=== PATIENT | male | born 1950 | race Caucasian/White ===

== ENCOUNTER → 2017-02-20 | Outpatient (CLI) | payer OTHER ==
[2017-02-20 13:11] LABS: BASO % 0.9 %; BASO ABS # 0.06 K/uL (0-0.2); COMPLETE YES; HEMATOCRIT 41.5 % (42-52); IG% 0.7 %; LYMPH % 35.2 %; LYMPH ABS # 2.36 K/uL (1.2-3.4); MEAN CORPUSCULAR HGB CONC 33.7 g/dl (32-36); MEAN PLATELET VOLUME 9.6 fL (7.4-10.4); MONO % 10.3 %; NEUT % 49.9 %; PLATELET COUNT 480 K/uL (130-400); RED BLOOD COUNT 4.37 M/uL (4.7-6.1)
[2017-02-20 13:37] LABS: ALT/SGPT 18 U/L (12-78); AST/SGOT 15 U/L (15-37); BLOOD UREA NITROGEN 18 mg/dl (7-18); BUN/CREATININE RATIO 21.3 (10-20); CALCIUM 9.1 mg/dl (8.5-10.1); CARBON DIOXIDE 28 mmol/L (21-32); CHLORIDE 105 mmol/L (98-107); CHOLESTEROL 171 mg/dl (0-200); CREATININE 0.83 mg/dl (0.60-1.40); GLUCOSE 107 mg/dl (70-99); POTASSIUM 4.6 mmol/L (3.5-5.1); SODIUM 139 mmol/L (136-145)
[2017-02-20 13:39] LABS: ALKALINE PHOSPHATASE 75 U/L (45-117); CHOLESTEROL/HDL RATIO 3.4; HDL CHOLESTEROL 51 mg/dl; LDL CHOLESTEROL CALCULATED 102 mg/dl; TRIGLYCERIDES 91 mg/dl (0-150); VERY LOW DENSITY LIPOPROT CALC 18 mg/dl
== END | disposition home or self-care (01) ==
LOC: C.LABMFLN 07:58
PROVIDERS: ATTEND Family Medicine
DX: I10 Essential (primary) hypertension (principal); E78.00 Pure hypercholesterolemia, unspecified; R04.2 Hemoptysis

== ENCOUNTER → 2017-06-05 | Outpatient (CLI) | payer OTHER | END | disposition home or self-care (01) | LOC: C.LABMFLN 11:35 | PROVIDERS: ATTEND Family Medicine | DX: L72.3 Sebaceous cyst (principal) ==

== ENCOUNTER → 2018-01-17 | Outpatient (CLI) | payer OTHER ==
[2018-01-17 18:18] LABS: ALBUMIN 3.5 gm/dl (3.4-5.0); ALT/SGPT 22 U/L (12-78); BASO % 0.3 %; BASO ABS # 0.02 K/uL (0-0.2); BLOOD UREA NITROGEN 18 mg/dl (7-18); CALCIUM 8.8 mg/dl (8.5-10.1); CARBON DIOXIDE 29 mmol/L (21-32); CHOLESTEROL 181 mg/dl (0-200); CREATININE 0.92 mg/dl (0.60-1.40); EOS % 1.5 %; EOS ABS # 0.12 K/uL (0-0.5); GLUCOSE 79 mg/dl (70-99); HEMOGLOBIN 16.2 g/dL (14.0-18.0); IG# 0.03 K/uL (0.00-0.02); LYMPH % 26.1 %; LYMPH ABS # 2.02 K/uL (1.2-3.4); MEAN CELL VOLUME 97.5 fL (80-100); MEAN CORPUSCULAR HEMOGLOBIN 33.6 pg (25-34); MEAN CORPUSCULAR HGB CONC 34.5 g/dl (32-36); MEAN PLATELET VOLUME 9.5 fL (7.4-10.4); MONO % 11.6 %; NEUT % 60.1 %; NEUT ABS # 4.66 K/uL (1.4-6.5); PLATELET COUNT 414 K/uL (130-400); POTASSIUM 4.4 mmol/L (3.5-5.1); RED CELL DISTRIBUTION WIDTH CV 14.8 % (11.5-14.5); RED CELL DISTRIBUTION WIDTH SD 52.4 fL (36.4-46.3); SODIUM 130 mmol/L (136-145); WHITE BLOOD COUNT 7.75 K/uL (4.8-10.8)
[2018-01-17 18:29] LABS: ALKALINE PHOSPHATASE 90 U/L (45-117); AST/SGOT 24 U/L (15-37); LDL CHOLESTEROL CALCULATED 110 mg/dl; TOTAL PROTEIN 7.7 gm/dl (6.4-8.2)
== END | disposition home or self-care (01) ==
LOC: C.LABMFLN 11:38
PROVIDERS: ATTEND Family Medicine
DX: I10 Essential (primary) hypertension (principal); R53.83 Other fatigue; E78.00 Pure hypercholesterolemia, unspecified

== ENCOUNTER → 2018-07-02 | Outpatient (CLI) | payer OTHER ==
--- NOTE | 2018-07-02 13:21 | DIAGNOSTIC IMAGING REPORT ---
PET/CT HISTORY: PULMONARY NODULE TECHNIQUE: PET/CT was performed from the base of the skull through the pelvis following the intravenous administration of 12.9 mCi of F18-FDG. Non-contrast CT imaging was performed over the same range without breath-hold for attenuation correction of PET images and anatomic correlation, but not for primary interpretation as it is not of standard diagnostic quality. CT DOSE: COMPARISON: Outside hospital and chest CT 04/30/2018. FINDINGS: HEAD AND NECK: FDG avid mass within the epiglottis and anterior supraglottic soft tissues. This area of masslike thickening measures up to 4.0 x 1.7 cm. This demonstrates an SUV max of 11. No significant airway compromise at this time. There is a 1.4 cm right level 2 lymph node. This demonstrates an SUV max of 4.9. Therefore, this likely represents metastatic disease. No additional enlarged or FDG avid cervical lymph nodes. CHEST: No FDG avid or enlarged mediastinal or hilar lymph nodes. The heart is mildly enlarged. Emphysema. No pleural effusions. No pneumothorax. There is a spiculated 12 x 8 mm nodule within the lingula on image 89. Questionable faint FDG uptake adjacent to the nodule on image 88. This may represent misregistration. This demonstrates an SUV max of 1.1. There is a 5 mm nodule within the base of the right lower lobe in image 114 and an 8 mm nodule within the right lower lobe on image 87. These do not demonstrate abnormal FDG uptake but are likely below the threshold for PET imaging. ABDOMEN/PELVIS: Below the diaphragm, tracer is distributed physiologically in the gastrointestinal and genitourinary tracts. There is no significant lymphadenopathy and no FDG-avid disease. Small fat-containing umbilical hernia. Extensive calcified plaque within the aorta and iliac arteries. Colonic diverticulosis. Fluid-filled small bowel. No evidence for bowel obstruction. MUSCULOSKELETAL: There is no FDG-avid or destructive bone lesion. IMPRESSION: 1. FDG avid supraglottic/epiglottic mass which is highly suspicious for malignancy. 2. A single FDG avid right cervical lymph node consistent with metastatic disease. 3. A spiculated 12 x 8 mm nodule within the lingula with questionable faint FDG uptake as described above. Regardless, the CT imaging alone is suspicious for malignancy. 4. Additional subcentimeter pulmonary nodules within the right lung are indeterminate. In addition, these are below the threshold for PET imaging. CT follow up recommended to ensure stability. Electronically signed by: Gabino Blair M.D. 07/02/2018 1:20 PM Dictated Date/Time: 07/02/2018 12:58 PM
== END | disposition home or self-care (01) ==
LOC: C.PET 10:08
PROVIDERS: ATTEND Physician Assistant
DX: R91.1 Solitary pulmonary nodule (principal); J38.7 Other diseases of larynx; R59.0 Localized enlarged lymph nodes

== ENCOUNTER 2018-10-29 11:27 | Inpatient (IN) ==
[2018-10-29] MEDS ORDERED: ACETAMINOPHEN 325 MG TAB PO PRN (12:46)
[2018-10-29] MEDS ORDERED: ALUMINUM/MAGNESIUM SUSP 30 ML UDC PO PRN (12:46)
[2018-10-29] MEDS ORDERED: ONDANSETRON INJ 2 MG/ML 2 ML VIAL IV PRN (12:46)
[2018-10-29] MEDS ORDERED: NITROGLYCERIN SL 0.4 MG/TAB TAB SL PRN (12:46)
[2018-10-29] MEDS ORDERED: POLYETHYLENE (MIRALAX) 17 GM PACK PO PRN (12:46)
[2018-10-29] MEDS ORDERED: TRAZODONE HCL 50 MG TAB PO PRN (12:46)
[2018-10-29] MEDS ORDERED: METOPROLOL TARTRATE 1 MG/ML VIAL IV PRN (12:51)
[2018-10-29] MEDS ORDERED: predniSONE 20 MG TAB PO STA (13:28)
[2018-10-29] MEDS ORDERED: ENOXAPARIN 80 MG/0.8 ML SYR SQ ONE (13:30)
[2018-10-29] MEDS ORDERED: DIGOXIN 250 MCG in SYRINGE 9 ML IV ONE (13:30)
[2018-10-29 13:38] LABS: Albumin Level 2.9 gm/dl (3.4-5.0); BUN Creatinine Ratio 11.3 (10-20); Calcium 9.2 mg/dl (8.5-10.1); Creatinine Clr Calc Pharmacy 43.1 ml/min; Est GFR (Non-African American) 41.4; Magnesium 1.9 mg/dl (1.8-2.4); Potassium 4.2 mmol/L (3.5-5.1)
[2018-10-29 13:49] LABS: Albumin Globulin Ratio 0.7 (0.9-2); Bilirubin,Total 0.5 mg/dl (0.1-1); Globulin 4.1 gm/dl (2.5-4.0); Phosphorus 2.8 mg/dl (2.5-4.9)
--- NOTE | 2018-10-29 13:56 | Cardiology Consultation ---
Date of Consultation October 29, 2018 Assessment & Plan (1) Chronic atrial fibrillation: According to our records this patient has chronic atrial fibrillation and is treated with rate control only. Currently he is resting comfortably and his heart rates have come down without intervention. I believe his high heart rates are most likely multifactorial including hypoxia. He is now on supplemental oxygen which has benefited him. I would continue conservative management. I agree with starting him on some low-dose metoprolol however, I would not add digoxin at this time. I would make sure that he is hydrated. His has bled score is 4 indicating high risk of bleeding with outpatient anticoagulation.At present I would do DVT prophylaxis only. (2) Hypoxia: Improved on supplemental oxygen (3) Head and neck malignancy: Receiving both chemotherapy and radiation (4) COPD (chronic obstructive pulmonary disease): Due to long-standing smoking history History of Present Illness Attending Physician: Geo Peres MD History of Present Illness This is a 68-year-old male patient with a history of Tobacco associated lung disease And COPD. 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 He has been receiving both chemo and radiation therapy.The patient was admitted from the cancer clinic with a history of hypoxia. He is currently resting comfortably. His [id number] was in the room and able to provide me with some history.We have been asked to see him In regard to atrial fibrillation with RVR. He has had long-standing history of chronic atrial fibrillation with rate control. It appears that he was not on outpatient anticoagulation before admission. His has bled score is 4 indicating high risk for anticoagulation. Past medical history: 1.Last seen at [place] cardiology for risk assessment regarding transbronchial lung biopsy done under general anesthesia�at �[facility] 2.Squamous cell head and neck cancer and right upper lobe with lung nodule���-�� �possible metastatic disease or a 2nd primary�tumor Current RXT and Chemo 3.Atrial fibrillation with controlled ventricular response rate 4.Stable CAD without angina Inferior ischemia on a nuclear stress test 09-16-2018 5.History of hypertension 6.Hyperlipidemia 7.Greater than 50 pack year history of tobacco usage 8.Questionable history of alcoholic cardiomyopathy in the past 9.Peripheral vascular disease��-���diffuse involving the upper and lower extremities Allergies Allergy/AdvReac Type Severity Reaction Status Date / Time No Known Drug Allergies Allergy Unknown Verified 10/27/18 09:41 Home Medications Home Medications Medication Instructions Recorded Confirmed Type albuterol sulfate HFA 90 2 puffs INH QID 09/03/18 10/28/18 History mcg/actuation aerosol inhaler aspirin 325 mg tablet,delayed 325 mg PO QAM 09/03/18 10/28/18 History release atorvastatin 20 mg tablet 20 mg PO HS 09/03/18 10/28/18 History olodaterol 2.5 mcg/actuation mist 2 inha INHALATION DAILY 09/03/18 10/28/18 History for inhalation omeprazole 20 mg tablet,delayed 20 mg PO QAM 09/03/18 10/28/18 History release albuterol sulfate 1.25 mg INHALATION BID PRN 09/11/18 10/28/18 History trazodone 50 mg PO HS PRN 09/11/18 10/28/18 History Patient History Medical History COPD (chronic obstructive pulmonary disease) (Acute) Peripheral vascular disease (Acute) Squamous cell carcinoma of supraglottis (Acute) Stroke (Acute) March 21, 2015. 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 Carotid Doppler, 2D echo, and Holter monitor did not show any evidence of embolic source. The patient was started on aspirin 81 milligrams and discharge back to senior care. Residual mild numbness and discoordination in the right hand and arm. Alcohol abuse per PCP note "36 beers per week", incarcerated for DUI, on parole Atrial fibrillation SANDERS (dyspnea on exertion) per PCP note, pt can only walk 50-75 feet before stopping, denies CP HTN (hypertension) Hyperlipidemia Hyponatremia Lung nodule Tobacco abuse Surgical History History of inguinal herniorrhaphy (Acute) Hx of inguinal herniorrhaphy (Acute) History of colonoscopy History of laryngoscopy with biopsies Family History Mother , age 93 old age No problems noted. Brother No problems noted. Son No problems noted. Son No problems noted. Father , age 72 of lung problems No problems noted. Social History marital status: Current Living Situation: Alone current occupational status: employed current occupation: [employer] Other Information That Helps Us Care for You: No Feels Safe at Home: Yes Safety Concerns: Feels Safe At This Time Smoking Status: Current every day smoker Tobacco Type: cigarettes Do You Dip or Chew Tobacco: No Second Hand Exposure: No Tobacco Cessation Education Requested by Patient: No Hx Alcohol Use: Yes Alcohol type: beer Alcohol Intake Frequency: 0-2 drinks per day Hx Substance Use: No Beliefs That Will Affect Care: None Communication Ability: Effective Director Of Student Aid Required: No caffeine: No high-fat food intake: 0-1 times daily daily servings of milk/calcium: 0-1 eating out: rarely or never reads food labels: seldom or never during the past year weight has: decreased > 10 lbs Review of Systems Review of Systems: See HPI for pertinent positives. All other 10 point review of systems are negative. Physical Exam 2 Vital Signs (Past 24 Hours): Last Vital Signs Temp 36.6 C 10/29/18 12:49 Pulse 120 H 10/29/18 12:49 Resp 19 10/29/18 12:49 BP 129/82 10/29/18 12:49 Pulse Ox 97 10/29/18 12:49 Physical Exam: General: Appears older than his stated age, resting comfortably Head: normocephalic, no masses, lesions, tenderness or abnormalities Eyes: conjunctiva are pink and non-injected, sclera clear Neck: supple, no adenopathy, no bruits, normal jugular venous pulse, no hepatojugular reflux Chest: normal shape and normal respiratory effort Lungs: Equal breath sounds bilaterally Cardiac Exam: - irregular rate & rhythm, no murmurs gallops or rubs - normal S1 , normal S2 Pulses: 2(+) throughout Abdomen: abdomen soft, non-tender, no abnormal masses and no hepatosplenomegaly Musculoskeletal: no gait disturbance, no joint inflammation, no deforming arthritis Extremities: no edema and no cyanosis Neuro: grossly normal exam Results & Data Laboratory Results Laboratory Results - last 24 hr 10/29/18 13:05 Sodium 134 L Potassium 4.2 Chloride 94 L Carbon Dioxide 30 Anion Gap 10.0 BUN 19 H Creatinine 1.67 H Est Cr Clr Drug Dosing 43.1 Est GFR ( Amer) 48.0 Est GFR (Non-Af Amer) 41.4 BUN/Creatinine Ratio 11.3 Glucose 80 Calcium 9.2 Phosphorus 2.8 Magnesium 1.9 Total Bilirubin 0.5 AST 19 ALT 17 Alkaline Phosphatase 83 Total Protein 7.0 Albumin 2.9 L Globulin 4.1 H Albumin/Globulin Ratio 0.7 L TSH 1.510 Medications Administered Current Inpatient Medications Acetaminophen (Tylenol) 650 mg PO Q4H PRN PRN Reason: Pain or Fever Stop: 11/28/18 12:45 Al Hydrox/Mg Hydrox/Simethicone (Maalox) 15 ml PO Q4H PRN PRN Reason: Dyspepsia Stop: 11/28/18 12:45 Albuterol (Duoneb) 3 ml NEB QIDR [facility] Stop: 11/28/18 15:59 Aspirin (Ecotrin) 81 mg PO QAM [facility] Stop: 11/29/18 08:59 Atorvastatin Calcium (Lipitor) 20 mg PO HS [facility] Stop: 11/28/18 20:59 Enoxaparin Sodium (Lovenox) 70 mg SQ BID [facility] Stop: 11/28/18 22:59 Metoprolol Tartrate (Lopressor) 5 mg IV Q4 PRN PRN Reason: Hypertension Stop: 11/28/18 12:50 Metoprolol Tartrate (Lopressor) 25 mg PO BID [facility] Stop: 11/28/18 20:59 Miscellaneous (Order Awaiting Action) 1 ea N/A QS [facility] Stop: 11/28/18 15:59 Nitroglycerin (Nitrostat) 0.4 mg SL UD PRN PRN Reason: Chest Pain Stop: 11/28/18 12:45 Ondansetron HCl (Zofran) 4 mg IV Q6H PRN PRN Reason: Nausea Stop: 11/28/18 12:45 Pantoprazole Sodium (Protonix) 40 mg PO DAILY [facility] Stop: 11/29/18 08:59 Polyethylene Glycol (Miralax Powder Packet) 17 gm PO DAILY PRN PRN Reason: Constipation Stop: 11/28/18 12:45 Prednisone (Prednisone) 20 mg PO DAILY [facility] Stop: 11/29/18 08:59 Trazodone HCl (Desyrel) 50 mg PO HS PRN PRN Reason: Sleep Stop: 11/28/18 12:45
[2018-10-29] MEDS ORDERED: INFLUENZA ADMINISTRATION CHARGE ONE (14:15)
[2018-10-29] MEDS ORDERED: INFLUENZA VACCINE HIGH DOSE 65+ 0.5 ML SYR IM ONE (14:15)
--- NOTE | 2018-10-29 14:44 | History & Physical Report ---
Date of Service October 29, 2018 Assessment & Plan (1) Atrial fibrillation: Patient is chronically atrial fib. His [place] fast score is 3 with a greater than 8% risk of event per year if no anti-coagulation. This does not take into account his malignancy which likely increases his risk somewhat. We will rate control him with metoprolol and digoxin we will institute Lovenox 1 mg /kg at this time we may transition to 1.5 with the thought that we need to stop his anticoagulation for his upcoming pulmonary procedure for a suspicious spiculated mass seen on chest CT (2) COPD (chronic obstructive pulmonary disease): Patient's hypoxia may be progression of his COPD will use duo nebs oral steroid therapy and supplemental oxygen however the patient is refusing this at this time. The patient typically sees me on any pulmonary medicine and if he does not have any improvement we may involve them (3) Alcohol abuse: Patient has history of alcohol abuse however he states he has never had withdrawal or shakiness from it we will continue to survey him for signs and symptoms of alcohol withdrawal (4) Tobacco abuse: Patient was counseled on tobacco abuse is not wish to have the patch at this point in time (5) Lung nodule: As mentioned the patient is 1.9 cm spiculated lung nodule scheduled for an outpatient biopsy by Dr. Wheatley November 21 (6) DVT prophylaxis: DVT prophylaxis therapeutic Lovenox History of Present Illness Chief Complaint: Shortness of breath Primary Care Provider: Jody Tillman MD Patient was sent as a direct admission from his primary care office. The patient was in the ER 1 day prior as he was tachycardic and hypoxic in oncology office and sent to the ER. In ER he was not documented to be hypoxic he has chronic atrial fibrillation and his A. fib was not rate controlled to see his rate was around 120. Patient sees Dr. Pieter Sood for cardiology and accompanying family member stated that on last visit they did discuss anticoagulation but did not come to a firm decision. Patient states he feels no chest pain cannot feel experiences of his palpitations is markedly dyspneic but has a history of COPD and most recently was diagnosed with squamous cell carcinoma with concern for nodules that are scheduled to be biopsied November 2018 Allergies Allergy/AdvReac Type Severity Reaction Status Date / Time No Known Drug Allergies Allergy Unknown Verified 10/27/18 09:41 Home Medications Home Medications Medication Instructions Recorded Confirmed Type albuterol sulfate HFA 90 2 puffs INH QID 09/03/18 10/28/18 History mcg/actuation aerosol inhaler aspirin 325 mg tablet,delayed 325 mg PO QAM 09/03/18 10/28/18 History release atorvastatin 20 mg tablet 20 mg PO HS 09/03/18 10/28/18 History olodaterol 2.5 mcg/actuation mist 2 inha INHALATION DAILY 09/03/18 10/28/18 History for inhalation omeprazole 20 mg tablet,delayed 20 mg PO QAM 09/03/18 10/28/18 History release albuterol sulfate 1.25 mg INHALATION BID PRN 09/11/18 10/28/18 History trazodone 50 mg PO HS PRN 09/11/18 10/28/18 History Past Med/Surg History Medical History COPD (chronic obstructive pulmonary disease) (Acute) Peripheral vascular disease (Acute) Squamous cell carcinoma of supraglottis (Acute) Stroke (Acute) March 21, 2015. 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 Carotid Doppler, 2D echo, and Holter monitor did not show any evidence of embolic source. The patient was started on aspirin 81 milligrams and discharge back to longterm. Residual mild numbness and discoordination in the right hand and arm. Alcohol abuse per PCP note "36 beers per week", incarcerated for DUI, on parole Atrial fibrillation SANDERS (dyspnea on exertion) per PCP note, pt can only walk 50-75 feet before stopping, denies CP HTN (hypertension) Hyperlipidemia Hyponatremia Lung nodule Tobacco abuse Surgical History History of inguinal herniorrhaphy (Acute) Hx of inguinal herniorrhaphy (Acute) History of colonoscopy History of laryngoscopy with biopsies Family History Mother , age 93 old age No problems noted. Brother No problems noted. Son No problems noted. Son No problems noted. Father , age 72 of lung problems No problems noted. Social History marital status: Current Living Situation: Alone current occupational status: employed current occupation: [employer] Other Information That Helps Us Care for You: No Feels Safe at Home: Yes Safety Concerns: Feels Safe At This Time Smoking Status: Current every day smoker Tobacco Type: cigarettes Do You Dip or Chew Tobacco: No Second Hand Exposure: No Tobacco Cessation Education Requested by Patient: No Hx Alcohol Use: Yes Alcohol type: beer Alcohol Intake Frequency: 0-2 drinks per day Hx Substance Use: No Beliefs That Will Affect Care: None Communication Ability: Effective Courtroom Deputy Or Calendar Clerk Required: No caffeine: No high-fat food intake: 0-1 times daily daily servings of milk/calcium: 0-1 eating out: rarely or never reads food labels: seldom or never during the past year weight has: decreased > 10 lbs Review of Systems ROS: Patient had difficulty with a raspy voice and challenging appetite No double vision blurry vision No problems with speech or swallowing No palpitations, chest pain or pressure he cannot since his rapid rate Dyspnea on exertion and occasional wheezing No abdominal pain nausea vomiting diarrhea changes in weight No burning urine urine frequency or changes in color No focal joint pain or muscle pain No skin rashes or oral lesions No unusual bruising or bleeding No focused back pain or numbness or loss of strength No changes in memory or confusion Physical Exam 2 Vital Signs (Past 24 Hours): Last Vital Signs Temp 36.6 C 10/29/18 12:49 Pulse 120 H 10/29/18 12:49 Resp 19 10/29/18 12:49 BP 129/82 10/29/18 12:49 Pulse Ox 97 10/29/18 12:49 The patient appeared thin and has the appearance of a chronic COPD patient Vital signs as documented. Head exam is unremarkable. He has missing multiple teeth has some dental caries his posterior pharynx is erythematous I see no overt masses no scleral icterus Neck is without jugular venous distension, thyromegaly, or lymphademopathy Lungs are decreased breath sounds throughout occasional expiratory wheeze Cardiac exam reveals irregularly irregular distant rhythm murmurs are not heard Abdominal exam reveals normal bowel sounds, no masses, no organomegaly Extremities are mildly edematous and both pedal pulses are normal. Neurologic exam is A&Ox3, no focal deficits, strength is equal bilateral Skin is warm Dry without bruises or lesions
[2018-10-29] MEDS: ALBUT/IPRATROP 3MG/0.5MG NEB 3 ML VIAL NEB SCH ×2 (15:14→19:04)
[2018-10-29] MEDS: ATORVASTATIN 20 MG TAB PO SCH (21:46)
[2018-10-29] MEDS: METOPROLOL TARTRATE 25 MG TAB PO SCH (21:46)
[2018-10-29] MEDS: ENOXAPARIN 80 MG/0.8 ML SYR SQ SCH (21:49)
[2018-10-30 06:14] LABS: Basophils # (auto) 0.01 K/uL (0-0.2); Basophils % (auto) 0.4 %; Eosinophils # (auto) 0.01 K/uL (0-0.5); Eosinophils % (auto) 0.4 %; Hematocrit (blood only) 28.3 % (42-52); Hemoglobin 9.4 g/dL (14.0-18.0); Lymphocytes # (auto) 0.28 K/uL (1.2-3.4); Mean Corpuscular Hgb Conc 33.2 g/dL (32-36); Mean Corpuscular Volume 92.2 fL (80-100); Mean Platelet Volume 9.2 fL (7.4-10.4); Monocytes # (auto) 0.53 K/uL (0.11-0.59); Monocytes % (auto) 18.9 %; Neutrophils # (auto) 1.97 K/uL (1.4-6.5); Neutrophils % (auto) 70.3 %; Platelet Count 246 K/uL (130-400); RDW Coefficient of Variation 17.5 % (11.5-14.5); RDW Standard Deviation 55.8 fL (36.4-46.3); Red Blood Count 3.07 M/uL (4.7-6.1)
[2018-10-30 06:49] LABS: BUN Creatinine Ratio 13.5 (10-20); Calcium 8.3 mg/dl (8.5-10.1); Est GFR (African American) 51.3; Est GFR (Non-African American) 44.3; Potassium 4.3 mmol/L (3.5-5.1)
[2018-10-30] MEDS: ALBUT/IPRATROP 3MG/0.5MG NEB 3 ML VIAL NEB SCH ×3 (06:52→19:02)
[2018-10-30] MEDS: ENOXAPARIN 80 MG/0.8 ML SYR SQ SCH (07:55)
[2018-10-30] MEDS: METOPROLOL TARTRATE 25 MG TAB PO SCH ×2 (07:55→20:47)
[2018-10-30] MEDS: ASPIRIN 81 MG ECTAB PO SCH (07:55)
[2018-10-30] MEDS: predniSONE 20 MG TAB PO SCH (07:55)
[2018-10-30] MEDS: PANTOprazole 40 MG TAB PO SCH (07:56)
--- NOTE | 2018-10-30 08:00 | XRay Report ---
XR chest 1V portable CLINICAL HISTORY: Atrial Fibrillation. COMPARISON STUDY: Chest radiograph and chest CT October 28, 2018. FINDINGS: There is no pneumothorax or pleural effusion. Moderate cardiomegaly is unchanged. There is no evidence for pulmonary edema. Emphysema is noted. A irregular lingular nodule is better depicted o n prior chest CT. There are multiple old bilateral rib fractures. IMPRESSION: 1. Cardiomegaly without evidence for pulmonary edema. 2. Redemonstration of a suspicious irregular lingular nodule which is better depicted on chest CT Dec ember 2017. Electronically signed by: Earnest Triana M.D. 10/30/2018 7:59 AM
[2018-10-30] MEDS ORDERED: ASPIRIN 325 MG ECTAB PO SCH (09:00)
--- NOTE | 2018-10-30 09:45 | Radiation OncologyConsultation ---
Date of Consultation October 30, 2018 Assessment & Plan (1) Head and neck malignancy: We will continue to treat the patient with radiation therapy while he is in the hospital for management of his atrial fibrillation. Please call us with any further questions or concerns. Present on Admission?: Yes History of Present Illness Reason for Consultation: Patient admitted to hospital due to unrelated cardiovascular issues. Requesting Physician: Ryan Melton MD Attending Physician: Carol Smith MD History of Present Illness Mr. Tovar is a 68-year-old gentleman who is well-known to our service. He is currently undergoing concurrent chemotherapy and radiation therapy for locally advanced head and neck cancer. The patient is admitted to the hospital for cardiovascular issues including atrial fibrillation. We have been asked to evaluate him to continue radiation therapy. In general, the patient has no significant complaints related to radiation therapy. He does note some dysphagia and dryness in the throat. He also states that his taste is been altered as well. Allergies Allergy/AdvReac Type Severity Reaction Status Date / Time No Known Drug Allergies Allergy Unknown Verified 10/27/18 09:41 Home Medications Home Medications Medication Instructions Recorded Confirmed Type albuterol sulfate HFA 90 2 puffs INH QID 09/03/18 10/28/18 History mcg/actuation aerosol inhaler aspirin 325 mg tablet,delayed 325 mg PO QAM 09/03/18 10/28/18 History release atorvastatin 20 mg tablet 20 mg PO HS 09/03/18 10/28/18 History olodaterol 2.5 mcg/actuation mist 2 inha INHALATION DAILY 09/03/18 10/28/18 History for inhalation omeprazole 20 mg tablet,delayed 20 mg PO QAM 09/03/18 10/28/18 History release albuterol sulfate 1.25 mg INHALATION BID PRN 09/11/18 10/28/18 History trazodone 50 mg PO HS PRN 09/11/18 10/28/18 History Patient History Family History Mother , age 93 old age No problems noted. Brother No problems noted. Son No problems noted. Son No problems noted. Father , age 72 of lung problems No problems noted. Social History marital status: Current Living Situation: Alone current occupational status: employed current occupation: [employer] Other Information That Helps Us Care for You: No Feels Safe at Home: Yes Safety Concerns: Feels Safe At This Time Smoking Status: Current every day smoker Tobacco Type: cigarettes Do You Dip or Chew Tobacco: No Second Hand Exposure: No Tobacco Cessation Education Requested by Patient: No Hx Alcohol Use: Yes Alcohol type: beer Alcohol Intake Frequency: 0-2 drinks per day Hx Substance Use: No Beliefs That Will Affect Care: None Communication Ability: Effective Appraiser Timber Required: No caffeine: No high-fat food intake: 0-1 times daily daily servings of milk/calcium: 0-1 eating out: rarely or never reads food labels: seldom or never during the past year weight has: decreased > 10 lbs Physical Exam 2 Vital Signs (Past 24 Hours): Last Vital Signs Temp 36.6 C 10/30/18 08:21 Pulse 136 H 10/30/18 08:21 Resp 24 10/30/18 08:21 BP 120/73 10/30/18 08:21 Pulse Ox 91 10/30/18 08:21 Constitutional: WD/WN, vitals as above well developed and well nourished ENMT: external ear and nose normal, oropharynx normal Results Additional Studies 10/29/18 12:46 CA echo transthoracic complete Routine 10/30/18 07:00 ECG 12 lead EKG DAILY XR chest 1V portable Routine 10/31/18 07:00 ECG 12 lead EKG DAILY
[2018-10-30] MEDS ORDERED: AZITHROMYCIN 250 MG TAB PO ONE (11:07)
--- NOTE | 2018-10-30 12:34 | Cardiology Progress Note ---
Date of Service October 30, 2018 Assessment & Plan (1) Chronic atrial fibrillation: I reviewed his telemetry today. He is in course atrial flutter or atrial fibrillation. Rates are better controlled on metoprolol especially at rest. His heart rates do elevate when he is moving around but that is not unexpected considering his medical problems. This patient was not on anticoagulation as an outpatient because of his risk of bleeding. His Has Bled score is 4 which indicates high risk. His Vinod Vas score is 5 indicating a high risk of embolic event. Along with his malignancy he is hypercoagulable. I think the best option regarding anticoagulation is to provide the risk and options to the patient and his family to allow them into the decision process. 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 He remains in atrial fibrillation with controlled heart rates at rest. Physical Exam 2 Vital Signs (Past 24 Hours): Last Vital Signs Temp 37.3 C 10/30/18 11:10 Pulse 104 H 10/30/18 11:10 Resp 20 10/30/18 11:10 BP 115/81 10/30/18 11:10 Pulse Ox 95 10/30/18 11:10 Physical Exam: General: no acute distress and stated age Head: normocephalic, no masses, lesions, tenderness or abnormalities Eyes: conjunctiva are pink and non-injected, sclera clear Neck: supple, no adenopathy, no bruits, normal jugular venous pulse, no hepatojugular reflux Chest: normal shape and normal respiratory effort Lungs: clear to auscultation and percussion Cardiac Exam: - irregular rate & rhythm, no murmurs gallops or rubs - normal S1 , normal S2 Pulses: 2(+) throughout Abdomen: abdomen soft, non-tender, no abnormal masses and no hepatosplenomegaly Musculoskeletal: no gait disturbance, no joint inflammation, no deforming arthritis Extremities: no edema and no cyanosis Neuro: grossly normal exam Results & Data Laboratory Results Laboratory Results - last 24 hr 10/29/18 10/30/18 10/30/18 13:05 05:40 05:40 WBC 2.80 L RBC 3.07 L Hgb 9.4 L Hct 28.3 L MCV 92.2 MCH 30.6 MCHC 33.2 RDW Std Deviation 55.8 H RDW Coeff of Makenzie 17.5 H Plt Count 246 MPV 9.2 Immature Gran % (Auto) 0.0 Neut % (Auto) 70.3 Lymph % (Auto) 10.0 [place] % (Auto) 18.9 Eos % (Auto) 0.4 Baso % (Auto) 0.4 Immature Gran # (Auto) 0.00 Neut # (Auto) 1.97 Lymph # (Auto) 0.28 L [place] # (Auto) 0.53 Eos # (Auto) 0.01 Baso # (Auto) 0.01 Sodium 134 L 135 L Potassium 4.2 4.3 Chloride 94 L 98 Carbon Dioxide 30 30 Anion Gap 10.0 7.0 BUN 19 H 21 H Creatinine 1.67 H 1.58 H Est Cr Clr Drug Dosing 43.1 43.0 Est GFR ( Amer) 48.0 51.3 Est GFR (Non-Af Amer) 41.4 44.3 BUN/Creatinine Ratio 11.3 13.5 Glucose 80 86 Calcium 9.2 8.3 L Phosphorus 2.8 Magnesium 1.9 Total Bilirubin 0.5 AST 19 ALT 17 Alkaline Phosphatase 83 Total Protein 7.0 Albumin 2.9 L Globulin 4.1 H Albumin/Globulin Ratio 0.7 L TSH 1.510 Medications Administered Current Inpatient Medications Acetaminophen (Tylenol) 650 mg PO Q4H PRN PRN Reason: Pain or Fever Stop: 11/28/18 12:45 Al Hydrox/Mg Hydrox/Simethicone (Maalox) 15 ml PO Q4H PRN PRN Reason: Dyspepsia Stop: 11/28/18 12:45 Albuterol (Duoneb) 3 ml NEB QIDR [facility] Stop: 11/28/18 15:59 Last Admin: 10/30/18 11:22 Dose: Not Given Aspirin (Ecotrin) 81 mg PO [facility] Stop: 11/29/18 08:59 Last Admin: 10/30/18 07:55 Dose: 81 mg Atorvastatin Calcium (Lipitor) 20 mg PO [facility] Stop: 11/28/18 20:59 Last Admin: 10/29/18 21:46 Dose: 20 mg Azithromycin (Zithromax) 250 mg PO [facility] Stop: 11/07/18 08:59 Enoxaparin Sodium (Lovenox) 100 mg SQ Q24H [facility] Stop: 11/29/18 19:59 Metoprolol Tartrate (Lopressor) 5 mg IV Q4 PRN PRN Reason: Hypertension Stop: 11/28/18 12:50 Metoprolol Tartrate (Lopressor) 25 mg PO BID [facility] Stop: 11/28/18 20:59 Last Admin: 10/30/18 07:55 Dose: 25 mg Miscellaneous (Order Awaiting Action) 1 ea N/A QS [facility] Stop: 11/28/18 15:59 Last Admin: 10/30/18 07:54 Dose: Not Given Nitroglycerin (Nitrostat) 0.4 mg SL UD PRN PRN Reason: Chest Pain Stop: 11/28/18 12:45 Ondansetron HCl (Zofran) 4 mg IV Q6H PRN PRN Reason: Nausea Stop: 11/28/18 12:45 Pantoprazole Sodium (Protonix) 40 mg PO DAILY [facility] Stop: 11/29/18 08:59 Last Admin: 10/30/18 07:56 Dose: 40 mg Polyethylene Glycol (Miralax Powder Packet) 17 gm PO DAILY PRN PRN Reason: Constipation Stop: 11/28/18 12:45 Prednisone (Prednisone) 20 mg PO DAILY [facility] Stop: 11/29/18 08:59 Last Admin: 10/30/18 07:55 Dose: 20 mg Trazodone HCl (Desyrel) 50 mg PO HS PRN PRN Reason: Sleep Stop: 11/28/18 12:45
[2018-10-30] MEDS ORDERED: LORazepam 0.5 MG TAB PO PRN (16:01)
--- NOTE | 2018-10-30 16:07 | Hospitalist Progress Note ---
Date of Service October 30, 2018 Assessment & Plan (1) Atrial fibrillation: Patient is chronically atrial fib. His Chadvasc score is 3 with a greater than 8% risk of event per year if no anti-coagulation. He has bled score is also elevated speaking with his direct support staff member there is some concern of difficulties with the patient with chronic kidney disease stage III for possible issues with anticoagulation. Given his upcoming pulmonary procedure for a suspicious spiculated mass seen on chest CT we may hold off on formal anticoagulation until after this procedure His rate control is continued to be controlled with beta-blockers (2) COPD (chronic obstructive pulmonary disease): Patient's hypoxia has improved we will continue duo nebs oral steroid therapy and supplemental oxygen as needed however the patient is refusing this at this time. (3) Alcohol abuse: Patient has history of alcohol abuse however he states he has never had withdrawal or shakiness from it we will continue to survey him for signs and symptoms of alcohol withdrawal. pt did request some ativan for sleeping (4) Tobacco abuse: Patient was counseled on tobacco abuse he does not wish to have the patch at this point in time (5) Lung nodule: As mentioned the patient is 1.9 cm spiculated lung nodule scheduled for an outpatient biopsy by Dr. Wheatley November 21 (6) DVT prophylaxis: DVT prophylaxis therapeutic Lovenox Subjective Patient states he feels much better today and less issues with hypoxia and dyspnea his A. fib still is very variable with rates in the 120s or 130s with exertion or minimal movement about his room however they are not associated with any chest pain Review of Systems ROS: No double vision blurry vision No new problems with speech or swallowing has persistent difficulties which are chronic Does experience some palpitations but no associated chest pain or pressure No Wheezing or breathing issues No abdominal pain nausea vomiting diarrhea changes in appetite or weight No burning urine urine frequency or changes in color No focal joint pain or muscle pain No skin rashes or oral lesions No unusual bruising or bleeding No focused back pain or numbness or loss of strength No changes in memory or confusion Physical Exam 2 Vital Signs (Past 24 Hours): Last Vital Signs Temp 36.7 C 10/30/18 15:20 Pulse 68 10/30/18 15:20 Resp 19 10/30/18 15:20 BP 117/79 10/30/18 15:20 Pulse Ox 96 10/30/18 15:20 The patient appeared well nourished and normally developed. Vital signs as documented. Head exam is unremarkable. No scleral icterus or corneal arcus noted Neck is without jugular venous distension, thyromegaly, or lymphademopathy Lungs are decreased breath sounds throughout prolonged expiratory phase but no wheezes or loss of breath sounds Cardiac exam reveals tachycardic and irregularly irregular Abdominal exam reveals normal bowel sounds, no masses, no organomegaly Extremities are nonedematous and both pedal pulses are normal. Neurologic exam is A&Ox3, no focal deficits, strength is equal bilateral Skin is warm Dry without bruises or lesions
[2018-10-30] MEDS ORDERED: ENOXAPARIN 100 MG/1ML SYR SQ SCH (20:00)
[2018-10-30] MEDS: ATORVASTATIN 20 MG TAB PO SCH (20:47)
[2018-10-31 06:14] LABS: Basophils # (auto) 0.01 K/uL (0-0.2); Basophils % (auto) 0.3 %; Eosinophils # (auto) 0.04 K/uL (0-0.5); Eosinophils % (auto) 1.2 %; Hematocrit (blood only) 28.2 % (42-52); Hemoglobin 9.3 g/dL (14.0-18.0); Immature Granulocytes # (auto) 0.01 K/uL (0.00-0.02); Immature Granulocytes % (auto) 0.3 %; Lymphocytes # (auto) 0.33 K/uL (1.2-3.4); Lymphocytes % (auto) 9.9 %; Mean Corpuscular Volume 93.7 fL (80-100); Monocytes % (auto) 21.1 %; Neutrophils # (auto) 2.23 K/uL (1.4-6.5); Neutrophils % (auto) 67.2 %; Platelet Count 231 K/uL (130-400); RDW Coefficient of Variation 17.7 % (11.5-14.5); RDW Standard Deviation 56.2 fL (36.4-46.3); Red Blood Count 3.01 M/uL (4.7-6.1); White Blood Count 3.32 K/uL (4.8-10.8)
[2018-10-31 06:49] LABS: BUN Creatinine Ratio 13.7 (10-20); Calcium 8.3 mg/dl (8.5-10.1); Creatinine Clr Calc Pharmacy 40.2 ml/min; Est GFR (Non-African American) 40.5; Potassium 3.9 mmol/L (3.5-5.1)
[2018-10-31 06:56] VITALS: BP 121/86; TEMP 97.9
[2018-10-31] MEDS: ALBUT/IPRATROP 3MG/0.5MG NEB 3 ML VIAL NEB SCH ×2 (07:05→11:05)
[2018-10-31] MEDS: PANTOprazole 40 MG TAB PO SCH (07:41)
[2018-10-31] MEDS: METOPROLOL TARTRATE 25 MG TAB PO SCH (07:41)
[2018-10-31] MEDS: predniSONE 20 MG TAB PO SCH (07:41)
[2018-10-31] MEDS: ASPIRIN 81 MG ECTAB PO SCH (07:42)
[2018-10-31] MEDS ORDERED: AZITHROMYCIN 250 MG TAB PO SCH (09:00)
[2018-10-31 11:07] VITALS: O2SAT 93
[2018-10-31 11:19] VITALS: PULSE 71
--- NOTE | 2018-10-31 16:49 | Discharge Summary ---
Date of Service October 31, 2018 Admission HPI Per Admitting Provider Patient was sent as a direct admission from his primary care office. The patient was in the ER 1 day prior as he was tachycardic and hypoxic in oncology office and sent to the ER. In ER he was not documented to be hypoxic he has chronic atrial fibrillation and his A. fib was not rate controlled to see his rate was around 120. Patient sees Dr. Pieter Sood for cardiology and accompanying family member stated that on last visit they did discuss anticoagulation but did not come to a firm decision. Patient states he feels no chest pain cannot feel experiences of his palpitations is markedly dyspneic but has a history of COPD and most recently was diagnosed with squamous cell carcinoma with concern for nodules that are scheduled to be biopsied November 2018 Principal Diagnosis atrial fibrillation with rapid ventricular response, head and neck cancer Discharge Exam The patient appeared well nourished and normally developed. Vital signs as documented. Head exam is unremarkable. No scleral icterus or corneal arcus noted Oral pharnyx is erythematous without exudate or mass seen Neck is without jugular venous distension, thyromegaly, or lymphademopathy Lungs are clear with prolongued expiratory phase but no wheeze. Cardiac exam reveals rate controlled but irregularly irregular Abdominal exam reveals normal bowel sounds, no masses, no organomegaly Extremities are nonedematous and both pedal pulses are normal. Neurologic exam is A&Ox3, no focal deficits, strength is equal bilateral Skin is warm Dry without bruises or lesions Discharge Data Allergies Allergy/AdvReac Type Severity Reaction Status Date / Time No Known Drug Allergies Allergy Unknown Verified 10/27/18 09:41 Consultations 10/29/18 12:48 Consult Case Management - Discharge Planning Routine 10/29/18 13:25 Consult Cardiology Routine 10/30/18 08:07 Consult Radiation Oncology Routine Hospital Course (1) Atrial fibrillation: Patient is chronically atrial fib. His Chadvasc score is 3 with a greater than 8% risk of event per year if no anti-coagulation. He has bled score is also elevated speaking with his book publisher there is some concern of difficulties with the patient with chronic kidney disease stage III for possible issues with anticoagulation. Given his upcoming pulmonary procedure for a suspicious spiculated mass seen on chest CT we may hold off on formal anticoagulation until after this procedure, then may consider noac or lovenox chronically His rate control is continued to be controlled with beta-blockers (2) COPD (chronic obstructive pulmonary disease): Patient's hypoxia has improved we will continue duo nebs oral steroid therapy will continue duonebs at home and taper steroids (3) Alcohol abuse: Patient has history of alcohol abuse however he states he has never had withdrawal or shakiness from it was councelled on cessation (4) Tobacco abuse: Patient was counseled on tobacco abuse he does not wish to have the patch at this point in time (5) Lung nodule: As mentioned the patient is 1.9 cm spiculated lung nodule scheduled for an outpatient biopsy by Dr. Wheatley November 21 Total Time Total Time Spent Total Time Spent (In Minutes): greater than 30 minutes were required to prepare discharge Discharge Plan Discharge Items Patient Disposition: Home - Home Health Services Reason For Visit: AFIB W RVR Discharge Diagnosis: atrial fibrillation with rapid rate Discharge Goals: Decrease discomfort Activity: Resume your previous activity Non-emergency contact: Primary Care Provider, Surgeon and [employer] Sales Representative Call non-emergency contact if: you have any medication questions Follow-up/Referrals: Jody Tillman MD [Primary Care Provider] - Diet: Regular Addtl Provider Instructions: Please follow up with your primary care provider prior to your scheduled biopsy with Dr Lara Prescriptions: New metoprolol tartrate 25 mg Tablet 25 mg PO BID Qty: 60 RF: 5 ipratropium-albuterol 0.5 mg-3 mg(2.5 mg base)/3 mL Solution For Nebulization 3 ml NEB QIDR Qty: 120 RF: 6 prednisone 20 mg Tablet 20 mg PO UD Qty: 10 RF: 0 Continue atorvastatin 20 mg tablet 20 mg PO HS RF: 0 aspirin [Aspir-Johanna] 325 mg tablet,delayed release (DR/EC) 325 mg PO QAM RF: 0 omeprazole 20 mg tablet,delayed release (DR/EC) 20 mg PO QAM RF: 0 olodaterol 2.5 mcg/actuation mist 2 inha Inhalation DAILY RF: 0 trazodone 50 mg Tablet 50 mg PO HS PRN (Reason: Sleep) RF: 0 Discontinued albuterol sulfate 90 mcg/actuation HFA aerosol inhaler 2 puffs INH QID RF: 0 albuterol sulfate 1.25 mg/3 mL Solution For Nebulization 1.25 mg INHALATION BID PRN (Reason: SOB) RF: 0 Stand-Alone Forms: [facility], [facility] Discharge Orders: Discharge Order (Routine); Ordered 10/31/18 Ordered By: Ryan Melton Admission Data Admit Date/Time: 10/29/18 12:35 Attending Provider: Ryan Melton Admit Provider: Geo Peres Primary Care Provider: Jody Tillman Other Providers: Sagar Heath ; Geo Peres ; Carol Smith Service: Telemetry Other Interventions: Discharge Summary Assessment (RN) Last Done: 10/31/18 11:17 DC Date/Time DO NOT enter until pt leaves facility: 10/31/18 11:44
== END 2018-10-31 11:44 | disposition home health service (06) | DRG 310 ==
LOC: SUATTDRO 12:35 → 2S 12:35